=== PATIENT | male | born 1935 | race Caucasian/White ===

== ENCOUNTER → 2017-12-11 14:24 | Outpatient (CLI) | payer MEDICARE, OTHER, SELFPAY ==
--- NOTE | 2017-12-11 | DI.CT.S_ITS ---
PROCEDURE: CT CHEST WO CON INDICATIONS: BRONCHITIS TECHNIQUE: Noncontrast 5 mm thick sections acquired from the pulmonary apices to the posterior costophrenic angles. 7 mm thick coronal and sagittal MIP reformats were then acquired. For radiation dose reduction, the following was used: automated exposure control, adjustment of mA and/or kV according to patient size. COMPARISON: None. FINDINGS: Image quality: Excellent. Lungs and pleura: No acute consolidation is seen. There is a 3-4 mm nodule seen within the right middle lobe image 37 series 3. Scattered bibasilar scarring/atelectasis.. No pleural effusions or pneumothorax. Central and peripheral airways are patent and normal in caliber. Mediastinum: There are coronary artery calcifications. Heart size is normal. No pericardial effusion. No mediastinal adenopathy by size criteria. Thoracic aorta and central pulmonary arteries are normal in size. Esophagus is normal in caliber. No hiatal hernia. Bones and chest wall: No suspicious bony lesions. No vertebral body compression fractures. No axillary or supraclavicular adenopathy by size criteria. Thyroid gland unremarkable. Abdomen: Visualized upper abdominal solid organs and bowel loops appear normal in the absence of contrast. IMPRESSION: Overall, no acute disease. Minimal bronchial wall thickening raising the possibility of low-grade bronchitis versus reactive airways disease. Nonspecific sub-5 mm pulmonary nodule within the right middle lobe, indeterminate in the absence of relevant comparison studies. If clinically indicated, followup with noncontrast chest CT in one year to exclude early malignant or metastatic possibilities could be performed. Dictated by: Alirio Fair M.D. on 12/11/2017 at 15:57 Approved by: Alirio Fair M.D. on 12/11/2017 at 16:16
== END ==
PROVIDERS: Family Provider Family Medicine; Visit Provider Family Medicine
DX: J40 Bronchitis, not specified as acute or chronic (principal)
CPT/HCPCS: 71250

== ENCOUNTER → 2018-11-12 08:32 | Outpatient (CLI) | payer MEDICARE, OTHER, SELFPAY ==
--- NOTE | 2018-11-12 | DI.CT.S_ITS ---
PROCEDURE: CT CHEST ABDOMEN W CON INDICATIONS: upper abdominal pain. Prior pulmonary nodule. TECHNIQUE: After the administration of oral contrast and intravenous contrast, 5 mm thick sections acquired from the lung apices to the iliac crests. 5 mm coronal and sagittal reformats were performed, with additional 7 mm coronal MIP reformats through the lungs. For radiation dose reduction, the following was used: automated exposure control, adjustment of mA and/or kV according to patient size. COMPARISON: [facility], CT, CT CHEST WO CON, 12/11/2017, 14:34. [facility], CR, CHEST 2 VIEW, 06/06/2015, 10:34. [facility], US, ABD AORTA ANEURYSM SCREENING, 03/11/2011, 11:02. FINDINGS: Image quality: Excellent. CHEST: Lungs and pleura: The previously seen right middle lobe pulmonary nodule is no longer definitely seen. Within the left upper lobe laterally, there is a mild cluster of new nodular opacity seen, as on series 3 image 24. The largest nodule of this cluster measures 4 mm. No definite pulmonary nodules can be seen elsewhere. No areas of acute lung consolidation are seen. Minimal emphysematous changes are seen. No pneumothorax or pleural effusions are seen. The central airways are patent. Mediastinum: Heart size is normal. Coronary artery calcifications are seen. No pericardial effusion. No mediastinal or hilar adenopathy by size criteria. Thoracic aorta and central pulmonary arteries are normal in size. Esophagus is normal in caliber. There is a small hiatal hernia. Chest wall: No axillary or supraclavicular adenopathy by size criteria. Thyroid gland demonstrates no significant CT abnormality. ABDOMEN: Solid organs: Liver is normal in size and enhancement. Diffuse fatty liver infiltration is noted. Gallbladder is not seen. Biliary system is non dilated. Pancreas enhances normally. Spleen is normal in size and enhancement. No adrenal nodules. Kidneys are normal in size and enhancement, without hydronephrosis. Peritoneum and bowel: Bowel loops demonstrate normal wall thickness and caliber. No free fluid or air. Nodes and vessels: No retroperitoneal or mesenteric adenopathy by size criteria. Aorta and inferior vena cava are normal in caliber. Atherosclerotic calcification is noted. Bones: No suspicious bony lesions. No vertebral body compression fractures. Age-appropriate bony degenerative changes are seen. Miscellaneous: There are postoperative sutures can be seen involving the anterior abdominal wall overlying the right upper quadrant of the abdomen. No ventral hernias. IMPRESSION: No imaging explanation is found for this patient's presenting history of abdominal pain. Status post cholecystectomy. No biliary dilatation. The previously seen right middle lobe nodule is no longer seen. There is now a new cluster of pulmonary nodular opacity seen involving the right upper lobe. The appearance and distribution is most consistent with infection. Please consider a followup noncontrast chest CT in 3-6 months for further evaluation. Incidental note is made of: Coronary artery calcification Subcutaneous sutures involving the right upper quadrant of the abdomen Small hiatal hernia Fatty liver infiltration Dictated by: Hunter Hudson M.D. on 11/12/2018 at 9:22 Approved by: Hunter Hudson M.D. on 11/12/2018 at 9:31
== END ==
PROVIDERS: PCP Family Medicine; Visit Provider Family Medicine
DX: R10.10 Upper abdominal pain, unspecified (principal); R91.1 Solitary pulmonary nodule; Z90.49 Acquired absence of other specified parts of digestive tract; I25.10 Atherosclerotic heart disease of native coronary artery without angina pectoris; K44.9 Diaphragmatic hernia without obstruction or gangrene; K76.0 Fatty (change of) liver, not elsewhere classified; R19.09 Other intra-abdominal and pelvic swelling, mass and lump; C61 Malignant neoplasm of prostate; D12.6 Benign neoplasm of colon, unspecified; Z80.0 Family history of malignant neoplasm of digestive organs
CPT/HCPCS: 71260; 74160; Q9967

== ENCOUNTER → 2019-03-04 10:30 | Outpatient (CLI) | payer MEDICARE, OTHER, SELFPAY ==
--- NOTE | 2019-03-04 | DI.CT.S_ITS ---
PROCEDURE: CT CHEST WO CON INDICATIONS: RIGHT UPPER LOBE PULMONARY INFILTRATE TECHNIQUE: Noncontrast 5 mm thick sections acquired from the pulmonary apices to the posterior costophrenic angles. 1 mm lung window, 5 mm thick coronal and sagittal and 7 mm axial MIP reformats were then acquired. For radiation dose reduction, the following was used: automated exposure control, adjustment of mA and/or kV according to patient size. COMPARISON: [facility], CT, CT CHEST WO CON, 12/11/2017, 14:34. FINDINGS: Image quality: Excellent. Lungs and pleura: No acute air space opacities. Mild platelike atelectasis is present at the left lung base. No pleural effusions or pneumothorax. The 5 mm pulmonary nodule described on the comparison CT dated 12/11/17 is no longer visualized. No new pulmonary nodules. Central and peripheral airways are patent and normal in caliber. Mediastinum: Heart size is normal. No pericardial effusion. No mediastinal adenopathy by size criteria. Thoracic aorta and central pulmonary arteries are normal in size. Scattered atheromatous calcifications are present within the aortic arch. Esophagus is normal in caliber. No hiatal hernia. Bones and chest wall: No suspicious bony lesions. Degenerative change including intervertebral disc space narrowing, endplate sclerosis, and Schmorl's nodes are present throughout the thoracic spine. No vertebral body compression fractures. No axillary or supraclavicular adenopathy by size criteria. Thyroid gland is unremarkable. Abdomen: Visualized upper abdominal solid organs and bowel loops appear normal in the absence of contrast. IMPRESSION: 1. Resolution of the 5 mm pulmonary nodule visualized on the comparison CT dated 12/11/17. No new pulmonary nodules or acute air space opacities. Dictated by: Hannah Kumar M.D. on 03/04/2019 at 10:55 Approved by: Hannah Kumar M.D. on 03/04/2019 at 11:06
== END ==
PROVIDERS: PCP Family Medicine; Visit Provider Family Medicine
DX: R91.8 Other nonspecific abnormal finding of lung field (principal); R91.1 Solitary pulmonary nodule
CPT/HCPCS: 71250

== ENCOUNTER → 2019-10-21 08:44 | Outpatient (CLI) | payer MEDICARE, OTHER, SELFPAY ==
--- NOTE | 2019-10-21 | DI.RAD.S_ITS ---
PROCEDURE: XR CHEST 2V INDICATIONS: COUGH R05 TECHNIQUE: 2 views of the chest were acquired. COMPARISON: [facility], CT, CT CHEST WO CON, 03/04/2019, 10:39. [facility], CR, CHEST 2 VIEW, 06/06/2015, 10:34. FINDINGS: Surgical changes and devices: None. Lungs and pleura: Chronic increased pulmonary interstitium. No pleural effusions or pneumothorax. Mediastinum: Mediastinal contours are normal. Heart size is normal. Bones and chest wall: No suspicious bony abnormalities. Soft tissues appear unremarkable. IMPRESSION: Chronic increased pulmonary interstitium suggesting chronic interstitial lung disease. Recommend clinical correlation. No acute focal consolidation or pleural effusion. Dictated by: Melissa Porter M.D. on 10/21/2019 at 10:18 Approved by: Melissa Porter M.D. on 10/21/2019 at 10:18
== END ==
PROVIDERS: PCP Family Medicine; Referring Provider Family Medicine; Visit Provider Family Medicine
DX: R05 Cough (principal)
CPT/HCPCS: 71046

== ENCOUNTER → 2019-12-14 09:00 | Outpatient (CLI) | payer MEDICARE, OTHER, SELFPAY ==
--- NOTE | 2019-12-14 | DI.CT.S_ITS ---
PROCEDURE: CT CHEST WO CON INDICATIONS: Pulmonary fibrosis, unspecified TECHNIQUE: Noncontrast 5 mm thick sections acquired from the pulmonary apices to the posterior costophrenic angles. 1 mm lung window, 5 mm thick coronal and sagittal and 7 mm axial MIP reformats were then acquired. For radiation dose reduction, the following was used: automated exposure control, adjustment of mA and/or kV according to patient size. COMPARISON: [facility], CT, CT CHEST ABDOMEN W CON, 11/12/2018, 9:09. [facility], CT, CT CHEST WO CON, 12/11/2017, 14:34. [facility], CR, CHEST 2 VIEW, 04/01/2008, 10:15. [facility], CT, CT CHEST WO CON, 03/04/2019, 10:39. [facility], CR, XR CHEST 2V, 10/21/2019, 8:42. FINDINGS: Image quality: Excellent. Lungs and pleura: Minimal dependent left lower lobe atelectasis or scarring can be seen. Presumed atelectasis can be seen involving the right lower lobe anteriorly and laterally within the lateral costophrenic angle. No kae pulmonary fibrosis can be seen. Small subpleural nodules can be seen involving the right lower lobe, which measure up to 4 mm. No acute air space opacities. No pleural effusions or pneumothorax. Central and peripheral airways are patent and normal in caliber. Mediastinum: Heart size is normal. No pericardial effusion. No mediastinal adenopathy by size criteria. Thoracic aorta and central pulmonary arteries are normal in size. Atherosclerotic calcification is seen, including coronary calcification. Esophagus is normal in caliber. There is a small hiatal hernia. Bones and chest wall: No suspicious bony lesions. Age-appropriate bony degenerative changes are seen. No vertebral body compression fractures. No axillary or supraclavicular adenopathy by size criteria. Thyroid gland demonstrates no significant noncontrast abnormality. Abdomen: There is a 3 mm nonobstructing left-sided kidney stone, as on series 2 image 71. Postoperative changes of the anterior abdominal wall can be seen on the right. There is associated atrophy of the right rectus abdominis muscle. The visualized portions of the upper abdominal structures are otherwise unremarkable for imaging technique. IMPRESSION: No kae pulmonary fibrosis can be seen. Presumed dependent atelectasis or scarring can be seen. 4 mm subpleural nodules can be seen involving the right lower lobe. Given the size and appearance, these most likely represent benign subpleural lymph nodes. For nodules of this size, no specific imaging followup is recommended. Incidental note is made of: Atherosclerotic calcification, including coronary artery calcification Small hiatal hernia 3 mm nonobstructing left-sided kidney stone Postoperative change of the right anterior abdominal wall Atrophy of the right rectus abdominis muscle Dictated by: Hunter Hudson M.D. on 12/14/2019 at 9:12 Approved by: Hunter Hudson M.D. on 12/14/2019 at 9:18
== END ==
PROVIDERS: PCP Family Medicine; Referring Provider Family Medicine; Visit Provider Family Medicine
DX: J84.10 Pulmonary fibrosis, unspecified (principal); R91.8 Other nonspecific abnormal finding of lung field; K44.9 Diaphragmatic hernia without obstruction or gangrene; N20.0 Calculus of kidney; I25.10 Atherosclerotic heart disease of native coronary artery without angina pectoris; M62.58 Muscle wasting and atrophy, not elsewhere classified, other site
CPT/HCPCS: 71250

== ENCOUNTER → 2020-01-20 10:22 | Outpatient (CLI) | payer MEDICARE, OTHER, SELFPAY ==
--- NOTE | 2020-01-20 10:25 | DI.NM.S_ITS ---
PROCEDURE: NM TIFFANIE PERF SPECT REST & STR Rest and exercise myocardial perfusion SPECT with gated imaging and ejection fraction RADIOPHARMACEUTICAL: 9.7 mCi Tc-99m sestamibi IV at rest and 25.8 mCi Tc-99m sestamibi IV at peak exercise. A one day-protocol was performed. INDICATIONS: Chest pain, unspecified TECHNIQUE: Radiopharmaceutical was injected at peak stress test, and also at rest. SPECT images were obtained. SPECT myocardial perfusion images were displayed in short axis, horizontal long axis, and vertical long axis views. Gated images were reviewed using [employer] software. COMPARISON: None. CARDIAC STRESS: A standard Renny treadmill exercise tolerance test was performed by the patient under the supervision of an attending staff. The patient exercised for 5 minutes and 11 seconds; functional aerobic impairment (LENA) is -8%. Hemodynamic data: There is normal blood pressure and heart rate response to exercise stress. Patient achieved 99% of maximum predicted heart rate at peak exercise. Symptoms: Patient denied chest pain during exercise. EKG: No diagnostic EKG changes of ischemia; no ectopy. FINDINGS: Raw data: There is good myocardial labeling by radiotracer. No significant motion artifacts. [id number] ratio is 0.4 (normal is less than 0.38 for sestamibi tracer, and less than 0.50 for thallium tracer). Left ventricle function: Gated images demonstrate normal left ventricle wall thickening. No segmental wall motion abnormality. No transient ischemic dilation; TID is 0.82 (normal less than 1.3). The left ventricle resting end-diastolic volume is 124 mL. Left ventricle stress ejection fraction is 64%; normal values are above 45%. Myocardial perfusion: There is a moderately severe fixed defect in the inferior wall that improves mildly with prone imaging, suggesting probably artifact and prior non-transmural infarction. No reversible defects to suggest ischemia. IMPRESSION: Low risk for ischemia. 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 Consider Echo given elevated heart to lung ratio at 0.4. 1) Probably abnormal nuclear stress test. There is a moderately severe fixed defect in the inferior wall that improves mildly with prone imaging, suggesting probably artifact and prior non-transmural infarction. No reversible defects to suggest ischemia. 2) Normal left ventricular size, wall motion, and systolic function (EF post stress 64%). 3) Consider Echo given elevated heart to lung ratio at 0.4. 4) No ECG evidence of ischemia. 5) No angina during the study. 6) Above average exercise tolerance (7.0 METs, LENA -8%). Target heart rate achieved. Appropriate hemodynamic response to exercise. 7) No prior nuclear stress test available for comparison. Dictated by: Alexei Gonzales MD on 01/20/2020 at 17:01 Approved by: Alexei Gonzales MD on 01/20/2020 at 17:07
== END ==
PROVIDERS: PCP Family Medicine; Referring Provider Family Medicine; Visit Provider Family Medicine
DX: R94.39 Abnormal result of other cardiovascular function study (principal); R07.9 Chest pain, unspecified; I25.10 Atherosclerotic heart disease of native coronary artery without angina pectoris; R06.02 Shortness of breath
CPT/HCPCS: 78452; 93017; A9502

== ENCOUNTER → 2020-02-03 10:32 | Outpatient (CLI) | payer MEDICARE, OTHER, SELFPAY ==
--- NOTE | 2020-02-11 08:33 | PM.PFT.1 ---
Pulmonary Function Test Referral & Results Date Patient Seen: 02/03/20 Requesting provider: Patricio Rowan Results: The spirometry demonstrates an FVC of 3.50 L which is 91% of predicted. The FEV1 was measured at 2.60 L which is 89% of predicted. The FEV1/FVC ratio was 74 which is 101% of predicted. Following the administration of bronchodilator there was a 15% improvement in FEV1 and a 78% improvement in FEF 25-75%. Lung volumes show an SVC of 3.53 L which is 97% of predicted. The diffusing capacity was measured at 27.29 which is 72% of predicted. No hemoglobin value was provided, so no correction for potential anemia could be made, if appropriate. The maximum voluntary ventilation was reduced Interpretation: This study demonstrates perhaps very mild obstructive lung disease based on minimal reduction FEV1 but some notable improvement in small airway flow after bronchodilator as demonstrated above based on change in FEF 25-75% Lung volumes are normal Diffusing capacity is also minimally reduced suggesting element of disease at the capillary alveolar level Clinical correlation suggested
== END ==
PROVIDERS: PCP Family Medicine; Referring Provider Family Medicine; Visit Provider Family Medicine
DX: R05 Cough (principal); R93.89 Abnormal findings on diagnostic imaging of other specified body structures; J84.10 Pulmonary fibrosis, unspecified; Z87.891 Personal history of nicotine dependence
CPT/HCPCS: 94060; 94726; 94729

== ENCOUNTER → 2020-03-03 08:53 | Outpatient (CLI) | payer MEDICARE, OTHER, SELFPAY ==
--- NOTE | 2020-03-03 08:55 | DI.US.S_ITS ---
PROCEDURE: US ABDOMEN COMPLETE INDICATIONS: Abnormal levels of other serum enzymes TECHNIQUE: Real-time scanning was performed of the abdominal and retroperitoneal organs, with image documentation. COMPARISON: [facility], CT, CT CHEST ABDOMEN W CON, 11/12/2018, 9:09. FINDINGS: Liver: Liver is diffusely increased in echogenicity. Hypoechoic mass within the mid right hepatic lobe measuring 2.9 x 1.8 x 2.5 cm. 1.3 cm right hepatic lobe cyst adjacent to the portal vein. Gallbladder: Cholecystectomy. Biliary ducts: Intrahepatic bile ducts are non-dilated. Extrahepatic bile duct caliber measures 7 mm. Normal is 6-7 mm or less in diameter, or 10 mm or less post-cholecystectomy. Pancreas: Visualized portions of the pancreas are sonographically normal. Spleen: Spleen is normal in size and homogeneous in echotexture. Kidneys: Kidneys are normal in size and echotexture. Right kidney measures 11.6 cm long; left kidney measures 11.3 cm long. No hydronephrosis or nephrolithiasis. No solid masses. 12 mm cyst involves the right kidney. Aorta: Visualized aorta is normal in caliber at less than 3 cm. Iliacs: Proximal common iliac arteries are normal in caliber at less than 2.5 cm. IVC: Intrahepatic inferior vena cava is patent. Miscellaneous: No free abdominal fluid. IMPRESSION: 1. Increased hepatic echogenicity noted possibly related to hepatic steatosis but other sources of hepatocellular disease cannot be excluded. Recommend clinical correlation. 2. Hypoechoic mass within the right hepatic lobe measuring up to 2.9 cm. Recommend hepatic protocol MRI for further assessment. 3. Small exophytic renal cyst. Dictated by: Luther GALDAMEZ Interpreted: Alexsandra Chow MD on 03/03/2020 at 11:58 Approved by: Alexsandra Chow M.D. on 03/03/2020 at 15:06
== END ==
PROVIDERS: PCP Family Medicine; Referring Provider Family Medicine; Visit Provider Family Medicine
DX: R74.8 Abnormal levels of other serum enzymes (principal); K76.89 Other specified diseases of liver; N28.1 Cyst of kidney, acquired; Z90.49 Acquired absence of other specified parts of digestive tract
CPT/HCPCS: 76700

== ENCOUNTER → 2020-03-21 09:29 | Outpatient (CLI) | payer MEDICARE, OTHER, SELFPAY ==
--- NOTE | 2020-03-21 | DI.MRI.S_ITS ---
PROCEDURE: MR ABDOMEN WO/W CON INDICATIONS: Liver lesion seen on recent ultrasound. TECHNIQUE: Coronal HASTE, axial 2D FLASH in- and [id number]; axial breath-hold T2 FSE. Dynamic axial VIBE during the administration of contrast; post-contrast coronal VIBE or 2D FLASH with fat saturation from the hepatic dome to the iliac crests. Optional diffusion weighted imaging and ADC may be performed. COMPARISON: [facility], US, US ABDOMEN COMPLETE, 03/03/2020, 9:27. FINDINGS: Image quality: There is motion artifact limiting evaluation. Lung bases: No basal pleural effusions. Heart size is normal. Solid organs: Evaluation of the liver is markedly limited by motion artifact. Within segment 4B of the left hepatic lobe, there is a slightly T2 hyperintense lesion measuring up to 1.9 cm. The lesion is not well visualized on the T1 and postcontrast images due to extensive motion artifact. On the delayed postcontrast series, there is suggestion of mild peripheral enhancement and central hypointensity. The lesion demonstrates restricted diffusion on DWI images. There is suggestion of a smaller lesion in segment 4B measuring up to approximately 1.0 cm on the diffusion sequences. There is probable small cyst in segment 5 of the right hepatic lobe measuring approximately 0.9 cm. Biliary system is non dilated. Pancreas is normal in morphology. Spleen is normal in size and enhancement. No adrenal nodules. Kidneys demonstrate no hydronephrosis. A few left parapelvic renal cysts are noted. Nodes and vessels: No retroperitoneal or mesenteric adenopathy by size criteria. Aorta and inferior vena cava are normal in size. Bowel and peritoneum: Visualized bowel loops are normal in caliber. There is colonic diverticulosis. No free fluid. Bones and soft tissues: No ventral hernias. Bone marrow is normal in overall signal. IMPRESSION: 1. Markedly limited study due to extensive motion artifact. 2. Small lesion in segment 4B of the left hepatic lobe demonstrating peripheral enhancement on delayed images and restricted diffusion likely corresponds to the finding on prior ultrasound. Given the imaging findings and patient's age, the findings are suspicious for a neoplasm such as metastatic disease or possibly a hepatoma. A smaller lesion in segment 4B is also suspected but not well evaluated due to motion artifact. Consider further confirmation with a contrast enhanced liver protocol CT if patient is unable to tolerate MR imaging. Dictated by: Daljit Valentin M.D. on 03/21/2020 at 15:23 Approved by: Daljit Valentin M.D. on 03/21/2020 at 15:36
== END ==
PROVIDERS: PCP Family Medicine; Referring Provider Family Medicine; Visit Provider Family Medicine
DX: K76.9 Liver disease, unspecified (principal); R16.0 Hepatomegaly, not elsewhere classified
CPT/HCPCS: 74183

== ENCOUNTER → 2020-04-07 09:30 | Outpatient (CLI) | payer MEDICARE, OTHER, SELFPAY ==
--- NOTE | 2020-04-07 09:41 | DI.CT.S_ITS ---
PROCEDURE: CT ABDOMEN WO/W CON INDICATIONS: Hepatomegaly, not elsewhere classified TECHNIQUE: 4 phase scanning was performed. Non-contrast 5 mm axial sections acquired from the diaphragm to the iliac crests. Following the administration of intravenous contrast, 5 mm thick arterial-phase, portal venous-phase, and 5-minute delayed phase images were acquired through the liver. 5 mm thick coronal and sagittal reformats were performed. For radiation dose reduction, the following was used: automated exposure control, adjustment of mA and/or kV according to patient size. COMPARISON: [facility], CT, CT CHEST ABDOMEN W CON, 11/12/2018, 9:09. [facility], US, US ABDOMEN COMPLETE, 03/03/2020, 9:27. [facility], MR, MR ABDOMEN WO/W CON, 03/21/2020, 10:25. FINDINGS: Image quality: Excellent. Lung bases: Lung bases are clear. Heart size is normal. There is a small hiatal hernia. Liver: The 1.9 cm lesion in segment 4B seen on ultrasound and MRI is inconspicuous on precontrast CT images. On arterial phase images, there is a vague area of increased enhancement compared to the liver parenchyma. On portal venous phase and delayed images, the lesion demonstrates peripheral enhancement as seen on MRI. The possible smaller lesion suggested by MRI on DWI images is not definitively visualized on CT. There is a 1 cm cyst in the posterior aspect of segment 4. Other solid organs: Gallbladder is absent. Biliary system is non dilated. Pancreas is normal in morphology. Spleen is normal in size and enhancement. No adrenal nodules. Both kidneys demonstrate normal size and enhancement, without hydronephrosis. A 3 mm nonobstructing stone is seen in left kidney. Nodes and vessels: No retroperitoneal or mesenteric adenopathy by size criteria. Aorta and inferior vena cava are normal in size. Moderate atherosclerosis. Bowel and peritoneum: Unenhanced bowel loops are normal in caliber. No free fluid or air. Bones: No suspicious bony lesions. No vertebral body compression fractures. Miscellaneous: No ventral hernias. IMPRESSION: 1. The 1.9 cm lesion in the segment 4B of the liver seen on ultrasound and MRI is vaguely visible on CT and demonstrates subtle peripheral enhancement. It remains suspicious for HCC although an atypical hemangioma is also a diagnostic possibility. A nuclear medicine tagged red cell scan may be helpful. If there is high clinical suspicion for neoplasm, ultrasound-guided biopsy may be feasible but likely challenging. Since this lesion is visible on ultrasound, temporal follow-up could be considered if clinical suspicion for malignancy is low. 2. The smaller 1 cm lesion in segment 4B described on the MRI is not visualized on CT. 3. Hepatic steatosis. 4. A 3 mm nonobstructing stone in left kidney. Dictated by: Melissa Porter M.D. on 04/07/2020 at 10:19 Approved by: Melissa Porter M.D. on 04/07/2020 at 13:53
== END ==
PROVIDERS: PCP Family Medicine; Referring Provider Family Medicine; Visit Provider Family Medicine
DX: K76.9 Liver disease, unspecified (principal); K76.0 Fatty (change of) liver, not elsewhere classified; R79.89 Other specified abnormal findings of blood chemistry; K44.9 Diaphragmatic hernia without obstruction or gangrene; Z90.49 Acquired absence of other specified parts of digestive tract; N20.0 Calculus of kidney
CPT/HCPCS: 74170; Q9967

== ENCOUNTER → 2020-12-04 11:50 | Outpatient (CLI) | payer MEDICARE, OTHER, SELFPAY ==
[2020-12-04 20:18] LABS: Prostate Specific Antigen < 0.064 ng/mL (0.10-4.00)
== END ==
PROVIDERS: PCP Family Medicine; Referring Provider Family Medicine; Visit Provider Family Medicine
DX: C61 Malignant neoplasm of prostate (principal)
CPT/HCPCS: 84153

== ENCOUNTER → 2023-09-30 09:05 | Outpatient (CLI) | payer MEDICARE, OTHER, SELFPAY ==
--- NOTE | 2023-09-30 | DI.RAD.S_ITS ---
PROCEDURE: XR LUMBAR SPINE MIN 4V INDICATIONS: low back pain with radiculopathy TECHNIQUE: 5 views of the lumbar spine were acquired, including bilateral oblique views. COMPARISON: None. FINDINGS: Bones: 5 nonrib-bearing vertebrae are present. There is trace anterolisthesis of L5 on S1. No vertebral body compression fractures. No suspicious bony lesions. Diffuse degenerative disc disease, moderate at L2-L3, L3-L4 and L4-L5, and mild at other levels. Moderate facet arthropathy at L3-L4, L4-L5 and L5-S1. Mild sacroiliac joint degeneration bilaterally. Soft tissues: Overlying bowel gas pattern is normal. Vascular calcifications consistent with atherosclerosis. Oblique images: No pars defects. IMPRESSION: 1. 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 Dictated by: Melissa Porter M.D. on 09/30/2023 at 10:12 Approved by: Melissa Porter M.D. on 09/30/2023 at 10:14
== END ==
PROVIDERS: PCP Family Medicine; Referring Provider Family Medicine; Visit Provider Family Medicine
DX: M51.16 Intervertebral disc disorders with radiculopathy, lumbar region (principal); M47.26 Other spondylosis with radiculopathy, lumbar region; M47.27 Other spondylosis with radiculopathy, lumbosacral region; M47.28 Other spondylosis with radiculopathy, sacral and sacrococcygeal region
CPT/HCPCS: 72110